=== PATIENT | female | born 1980 ===

== ENCOUNTER 2022-06-05 11:08 | Outpatient (CLI) | payer OTHER ==
[2022-06-05] MEDS ORDERED: Iopamidol 370 76% 100 ML VIAL ONE (14:59)
== END 2022-06-05 11:09 | disposition home or self-care (01) ==
LOC: CT 11:08
PROVIDERS: ATTEND Nurse Practitioner Family
DX: R10.9 Unspecified abdominal pain (principal); K42.9 Umbilical hernia without obstruction or gangrene
CPT/HCPCS: 74177; Q9967